=== PATIENT | female | born 1960 | race Caucasian/White ===

== ENCOUNTER 2019-08-24 13:39 | Outpatient (CLI) | payer OTHER, SELFPAY ==
--- NOTE | ~2019-08-24 | XR_ITS ---
XR shoulder LT min 2V DATE: 08/24/2019 14:06 INDICATION: Left shoulder pain. No injury. TECHNIQUE: 4 views COMPARISON: None FINDINGS: No fracture or dislocation, periosteal reaction or bone destruction or abnormal soft tissue calcification. Mild degenerative change of the left acromioclavicular joint. Aortic arch calcification is noted. IMPRESSION: Mild degenerative change at the left acromioclavicular joint Reviewed, dictated and finalized at location A. U RN
== END 2019-08-24 13:40 | disposition home or self-care (01) ==
LOC: ANHIMG 13:45
PROVIDERS: PCP Family Medicine; Visit Provider Family Medicine
DX: M25.512 Pain in left shoulder (principal)
CPT/HCPCS: 73030

== ENCOUNTER 2020-07-15 15:00 | Outpatient (CLI) | payer OTHER, SELFPAY ==
--- NOTE | ~2020-07-15 | MM_ITS ---
EXAMINATION: MM screening ángel BI w luis HISTORY: Screening TECHNIQUE: Craniocaudal and mediolateral oblique 3-D tomosynthesis images were obtained and synthetic 2-D images were generated. CAD analysis was submitted and interpreted. COMPARISON: Comparison to multiple prior studies sequentially, with oldest reviewed study dated 11/21. BREAST PARENCHYMAL COMPOSITION: The breasts are extremely dense, which lowers the sensitivity of mamm ography. FINDINGS: There is no evidence of suspicious mass, calcification, or architectural distortion to sugg est malignancy in either breast. There has been no suspicious interval change. IMPRESSION: 1. No mammographic evidence of malignancy. 2. Recommend routine screening mammography in one year. BI-RADS Category 1: Negative Reviewed, dictated and finalized at location A. INA PLANT SUPERVISOR
== END 2020-07-15 15:01 | disposition home or self-care (01) ==
LOC: ANHIMG 15:03
PROVIDERS: PCP Family Medicine; Visit Provider Family Medicine
DX: Z12.31 Encounter for screening mammogram for malignant neoplasm of breast (principal)
CPT/HCPCS: 77063; 77067

== ENCOUNTER 2020-08-24 10:28 | Outpatient (CLI) | payer OTHER, SELFPAY ==
--- NOTE | ~2020-08-24 | US_ITS ---
EXAMINATION: US carotid duplex BI DATE: 08/24/2020 11:22 INDICATION: Left carotid bruit TECHNIQUE: Grayscale, color Doppler, and pulsed Doppler images of the cervical carotid arteries were obtained. The degree of vessel stenosis is placed in one of the following categories: normal, <50%, 5 0-69%, >=70% but less than near-occlusion, near-occlusion, or total occlusion. Note that percent sten osis relative to normal distal artery lumen diameter is indirectly measured from velocity measurement s as described by Adalid, et al. Radiology 2003; 229:340-346. COMPARISON: None. FINDINGS: RIGHT: The right common carotid artery (CCA) peak systolic velocity (PSV) is 94 cm/s. The right internal car otid artery (ICA) PSV is 122 cm/s. The right ICA end-diastolic velocity (EDV) is 45 cm/s. The right I CA/CCA PSV ratio is 1.3. Grayscale and color Doppler images yield an estimate of <50% diameter reduct ion from plaque in the ICA. The external carotid artery (ECA) PSV is 145 cm/s. There is antegrade vangie w in the right vertebral artery. LEFT: The left CCA PSV is 96 cm/s. The left ICA PSV is 128 cm/s. The left ICA EDV is 39 cm/s. The left ICA/ CCA PSV ratio is 1.3. Grayscale and color Doppler images bleeding secondary Doppler criteria yield an estimate of <50% diameter reduction from plaque in the ICA. The ECA PSV is 142 cm/s. There is antegr raymond flow in the left vertebral artery with mid systolic deceleration which can be seen in the setting of presubclavian steal. IMPRESSION: 1. <50% stenosis in the right internal carotid artery. 2. <50% stenosis in the left internal carotid artery. 3. Left vertebral artery mid systolic deceleration which can be seen in the setting of presubclavian steal with stenosis in the more proximal left subclavian artery. Reviewed, dictated and finalized at location A. ET CUTTER IMPRESSION: 1. <50% stenosis in the right internal carotid artery. 2. <50% stenosis in the left internal carotid artery. 3. Left vertebral artery mid systolic deceleration which can be seen in the set ting of presubclavian steal with stenosis in the more proximal left subclavian artery.
== END 2020-08-24 10:29 | disposition home or self-care (01) ==
PROVIDERS: Family Provider Internal Medicine; PCP Family Medicine; Visit Provider Internal Medicine Cardiovascular Disease
DX: R09.89 Other specified symptoms and signs involving the circulatory and respiratory systems (principal); I65.23 Occlusion and stenosis of bilateral carotid arteries
CPT/HCPCS: 93880

== ENCOUNTER 2020-10-28 10:16 | Outpatient (CLI) | payer OTHER, SELFPAY ==
--- NOTE | ~2020-10-28 | NM_ITS ---
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 The patient was infused intravenously with Lexiscan (Regadenoson). Then, 28.7 mCi Tc99m tetrofosmin (Myoview) was administered intravenously, and stress images were obtained. Data was recon structed into short axis and horizontal and vertical long axis SPECT images. Gated SPECT images were also obtained. COMPARISON: None. FINDINGS: There is no definite reversible or fixed perfusion abnormality to suggest ischemia or infar ction. There is normal left ventricular chamber size, wall motion and ejection fraction. Left ventr icular ejection fraction measures >70%. IMPRESSION: 1. Normal myocardial perfusion at rest and during stress. 2. Left ventricular ejection fraction measuring >70%. Reviewed, dictated and finalized at location B.
--- NOTE | 2020-10-28 11:09 | EST_ITS ---
Patient Info Name: Gerri Loja Age: 60 years : 1960 Gender: Female Ht: 65 in Wt: 102 lbs BSA: 1.44 m2 Exam Date: 10/28/2020 11:42 AM Exam Location: [facility] Stress Patient Status: Outpatient Admit Date: 10/28/2020 Staff Ordering Physician: Ted Olivares DO Attending Provider: Ted Olivares DO Referring Physician: Ted Olivares; Exercise Technologist: Cristy Llamas CT Exercise Physician: Ted Olivares DO Exam Type: CA stress sloan w NM Study Info Indications R07.9 - Chest pain, unspecified A regadenoson stress test was performed. Summary 1. 1. Negative lexiscan stress test for ischemic ST change by ECG criteria. 2. 2. Stable hemodynamics throughout the test. 3. 3. Nuclear scan to follow and will be reported separately. Please correlate with it. 4. 4. Patient informed of the above results. Protocol: Lexiscan Stress ECG Details Stage: REST Duration (min): 4 min : 20 sec HR (bpm): 63 SBP (mmHg): 133 DBP (mmHg): 54 Stage: REST Duration (min): 5 min : 35 sec HR (bpm): 61 SBP (mmHg): 133 DBP (mmHg): 54 Stage: STAGE 1 Duration (min): 0 min : 59 sec HR (bpm): 72 SBP (mmHg): 132 DBP (mmHg): 67 Stage: RECOVERY Duration (min): 1 min : 0 sec HR (bpm): 76 SBP (mmHg): 132 DBP (mmHg): 67 Stage: RECOVERY Duration (min): 2 min : 0 sec HR (bpm): 77 SBP (mmHg): 132 DBP (mmHg): 67 Stage: RECOVERY Duration (min): 2 min : 32 sec HR (bpm): 79 SBP (mmHg): 174 DBP (mmHg): 71 Rest HR: 61 bpm Peak HR: 79 bpm Rest Sys BP: 133 mmHg Peak Sys BP: 174 mmHg Max Pred HR: 159 bpm % Max Pred HR: 50 % Target HR: 135 bpm Max RPP: 13,746 bpm*mmHg Termination Reason: Completed protocol Cardiac Symptoms: Shortness of breath Total Time: 1 min : 0 sec Rest Suresh BP: 54 mmHg Peak Suresh BP: 71 mmHg Total Dose: 0.4 mg Resting ECG Sinus rhythm. Stress ECG No ST changes. Arrhythmias None. Report Signatures
== END 2020-10-28 10:17 | disposition home or self-care (01) ==
PROVIDERS: PCP Family Medicine; Visit Provider Internal Medicine Cardiovascular Disease
DX: I25.10 Atherosclerotic heart disease of native coronary artery without angina pectoris (principal); R06.00 Dyspnea, unspecified
CPT/HCPCS: 78452; 93017; A9502; J2785

== ENCOUNTER 2021-02-03 13:20 | Outpatient (CLI) | payer OTHER, SELFPAY ==
--- NOTE | 2021-02-03 13:34 | ECHO_ITS ---
Patient Info Name: Gerri Loja Age: 60 years : 1960 Gender: Female Ht: 65 in Wt: 101 lbs BSA: 1.44 m2 HR: 65 bpm BP: 151 / 56 mmHg Technical Quality: Good Exam Date: 02/03/2021 1:51 PM Exam Location: [facility] Pulmonary Patient Status: Outpatient Admit Date: 02/03/2021 Staff Ordering Physician: Ted Olivares DO Home Health Specialist: Angel Osborn, [place], [place] Attending Provider: Ted Olivares DO Referring Physician: Marshall PEDRO; Exam Type: CA echo dop color flow w con Study Info Indications I50.9 - Heart failure, unspecified Complete two-dimensional, color flow and Doppler transthoracic echocardiogram is performed. Summary 1. Complete two-dimensional, color flow and Doppler transthoracic echocardiogram is performed. 2. Left ventricular chamber dimension is normal. 3. Left ventricular systolic function is normal, estimated at 60-65%. 4. The left ventricular diastolic function is grade I diastolic dysfunction. 5. E/e' 12 is mildly elevated. 6. Left atrial chamber dimension is mildly enlarged. 7. There is trace mitral valve regurgitation. 8. No pulmonary hypertension, estimated pulmonary arterial systolic pressure is 27 mmHg. Left Ventricle E/e' 12 is mildly elevated. Left ventricular chamber dimension is normal. Left ventricular systolic function is normal, estimated at 60-65%. The left ventricular diastolic function is grade I diastolic dysfunction. Right Ventricle Right ventricular systolic function is normal and with normal TAPSE 2.0 cm. Right ventricular chamber dimension is normal. Left Atria Left atrial chamber dimension is mildly enlarged. Right Atria Right atrial chamber dimension is normal. Aortic Valve The aortic valve is not well visualized. Cannot determine number of aortic valve leaflets. There is no aortic valve stenosis. There is no aortic valve regurgitation. Pulmonic Valve There is no pulmonic regurgitation. Mitral Valve There is no mitral valve stenosis. There is trace mitral valve regurgitation. Tricuspid Valve There is no tricuspid valve regurgitation. No pulmonary hypertension, estimated pulmonary arterial systolic pressure is 27 mmHg. Pericardium/Pleural There is no pericardial effusion. Inferior Vena Cava Normal inferior vena cava with >50% collapse upon inspiration consistent with normal right atrial pressure, 5 mmHg. Aorta The aortic root size at the sinus of Valsalva is normal. Left Ventricular Outflow Tract Name Value Normal LVOT 2D LVOT Diameter 1.99 cm LVOT Doppler LVOT Peak Gradient 4 mmHg LVOT Mean Gradient 2 mmHg LVOT VTI 18.72 cm LVOT VTI/AV VTI Ratio 0.60 LVOT Stroke Volume 58.04 ml LVOT CO 3.50 l/min LVOT CI 2.43 L/min/m2 Mitral Valve Name Value Normal
== END 2021-02-03 13:21 | disposition home or self-care (01) ==
PROVIDERS: PCP Family Medicine; Visit Provider Internal Medicine Cardiovascular Disease
DX: I51.9 Heart disease, unspecified (principal)
CPT/HCPCS: 93306

== ENCOUNTER 2021-02-10 09:52 | Emergency (ER) | payer OTHER, SELFPAY ==
[2021-02-10 10:04] VITALS: BP 114/56; PULSE 73; RESP 18; TEMP 36.5; O2SAT 99
--- NOTE | 2021-02-10 10:22 | ED.SKABFB ---
HPI - Skin/Abscess/Foreign Bdy General Chief complaint: Skin/Abscess/Foreign Body Stated complaint: Insect Bite Source: patient and RN notes reviewed Limitations: no limitations History of Present Illness HPI narrative: The patient, who is on several meds, presents with witnessed insect bite. Patient states she saw flying insect bite her lower extremity, a shorter couple days ago. No fever, abscess/induration/fluctuance, streaking. Symptoms are mild, associated with itching, from two, half dollar size areas along the moreno;its unrelieved with OTC preparations like baking soda. She reports prior physician has given her steroids; Patient advised she can use OTC preparations also Related Data Home Medications Medication Instructions Recorded Confirmed alendronate mg PO 02/10/21 clopidogrel 02/10/21 cyclobenzaprine mg 02/10/21 lisinopril 02/10/21 lisinopril 02/10/21 meloxicam 02/10/21 metoprolol succinate PO 02/10/21 simvastatin mg 02/10/21 Allergies Allergy/AdvReac Type Severity Reaction Status Date / Time No Known Allergies Allergy Verified 02/10/21 10:21 Review of Systems Review of Systems: Narrative: General/Constitutional: No weight loss,fever Eyes: N0: Redness,discharge Ears/Nose/Throat: No: Epistaxis,ear discharge Respiratory: Denies: Hemoptysis Gastrointestinal: No Vomiting, Bleeding-rectal Skin: No Lumps, eruption Neurologic: No Focal Weakness,Sz Hematologic: Denies: Petechiae/Purpura Psychiatric: No: Suicida ideationl All Other Systems: Reviewed and Negative PMFSH Comments At time of signature, agree with nursing past medical, surgical, social and family history. There is no relevant family history pertinent to the presenting complaint Exam Narrative: Exam Narrative: General Appearance: Well appearing, lean/thin, Conjunctiva clear Ears: External ear normal, Auditory canal normal Nose: Normal nose, Nares clear Mouth/Throat: Normal appearing, Normal lips Supple Respiratory: Airway patent, No respiratory distress Musculoskeletal: Normal strength Skin: Warm, Dry, Normal color; 2 half-dollar sized insect bites of the right moreno with plaque like, routine healing Neurological: A&O x3, Normal affect Course Vital Signs Vital signs: Vital Signs Temperature 97.7 F 02/10/21 10:04 Pulse Rate 73 02/10/21 10:04 Respiratory Rate 18 02/10/21 10:04 Blood Pressure 114/56 L 02/10/21 10:04 Pulse Oximetry 99 02/10/21 10:04 Temperature 97.7 F 02/10/21 10:04 Pulse Rate 73 02/10/21 10:04 Respiratory Rate 18 02/10/21 10:04 Blood Pressure 114/56 L 02/10/21 10:04 Pulse Oximetry 99 02/10/21 10:04 Discharge Plan Discharge Clinical Impression: Pruritic condition Insect bites Qualifiers: Encounter type: initial encounter Site of insect bite: lower leg Laterality: right Qualified Code(s): S80.861A - Insect bite (nonvenomous), right lower leg, initial encounter Patient Disposition: Home, Self-Care Condition: Stable Instructions: Insect Bite or Sting (ED) Additional Instructions: You may also try OTC preparations like antihistamines [like Claritin, etc.], 1% hydrocortisone/Cortaid Prescriptions: New mupirocin 2 % ointment 1 applic TOPICAL TID Qty: 30 RF: 0 cephalexin 500 mg capsule 1,000 mg PO Q12H 3 Days Qty: 12 RF: 0 No Action cyclobenzaprine 10 mg tablet RF: 0 meloxicam 15 mg tablet RF: 0 lisinopril 20 mg tablet RF: 0 alendronate 70 mg tablet PO RF: 0 clopidogrel 75 mg tablet RF: 0 simvastatin 20 mg tablet RF: 0 lisinopril 5 mg tablet RF: 0 metoprolol succinate 25 mg tablet extended release 24 hr PO RF: 0 Follow-up/Referrals: Toan,Kim Claros MD [Primary Care Provider] -
== END 2021-02-10 10:29 | disposition home or self-care (01) ==
PROVIDERS: Emergency Provider Emergency Medicine; PCP Family Medicine
DX: S80.861A Insect bite (nonvenomous), right lower leg, initial encounter (principal); W57.XXXA Bitten or stung by nonvenomous insect and other nonvenomous arthropods, initial encounter; E78.00 Pure hypercholesterolemia, unspecified; I10 Essential (primary) hypertension
CPT/HCPCS: 99213; G0463

== ENCOUNTER 2021-02-14 11:50 | Emergency (ER) | payer OTHER, SELFPAY ==
[2021-02-14 12:01] VITALS: BP 107/51; PULSE 72; RESP 16; TEMP 36.8; O2SAT 98
--- NOTE | 2021-02-14 12:04 | ED.SKABFB ---
HPI - Skin/Abscess/Foreign Bdy General Chief complaint: Skin/Abscess/Foreign Body Stated complaint: insect bite Time Seen by Provider: 02/14/21 12:35 Source: patient and RN notes reviewed Mode of arrival: ambulatory Limitations: no limitations History of Present Illness HPI narrative: 60-year-old female presents concern for a wasp sting to her right hand. Reports yesterday she encountered several wasps and was stung approximately 3 times on her right hand. She reports swelling, itching, some pain. She denies decrease strength, sensation, range of motion. Denies swollen lips, swollen tongue, trouble breathing. Reports she is used ice and hydrocortisone cream. MD complaint: insect bite/sting Related Data Home Medications Medication Instructions Recorded Confirmed alendronate 70 mg tablet 70 mg PO WEEKLY 08/19/20 02/14/21 aspirin 81 mg chewable tablet 81 mg PO DAILY 08/19/20 02/14/21 calcium carbonate 200 mg calcium 200 mg PO BID 08/19/20 02/14/21 (500 mg) chewable tablet cinnamon bark 500 mg capsule 500 mg PO DAILY 08/19/20 02/14/21 clopidogrel 75 mg tablet 75 mg PO DAILY 08/19/20 02/14/21 metoprolol succinate 25 mg 25 mg PO DAILY 08/19/20 02/14/21 tablet,extended release 24 hr multivitamin 1 tablet PO DAILY 08/19/20 02/14/21 simvastatin 20 mg tablet 20 mg PO DAILY 08/19/20 02/14/21 vitamin B complex 1 tablet PO DAILY 08/19/20 02/14/21 cephalexin 02/14/21 Allergies Allergy/AdvReac Type Severity Reaction Status Date / Time No Known Allergies Allergy Verified 02/14/21 12:12 Review of Systems Review of Systems: Narrative: CONSTITUTIONAL: Denies malaise, chills, sweats, or fever. ENT: Denies swollen lips, swollen tongue CARDIOVASCULAR: Denies chest pain, palpitations, or edema. RESPIRATORY: Denies cough or dyspnea. SKIN: Reports right hand swelling, itching, tenderness MUSCULOSKELETAL: Denies muscle skeletal pain or myalgia. NEUROLOGIC: Denies numbness, weakness. All systems reviewed & are unremarkable except as noted in HPI and below PMFSH Social History Social History (Reviewed 01/13/21 @ 09:41 by Cony Carreno [facility]) Smoking status: Former smoker Comments At time of signature, agree with nursing past medical, surgical, social and family history. There is no relevant family history pertinent to the presenting complaint Exam Narrative: Exam Narrative: GENERAL: Well-appearing, well-nourished, and in no acute distress. HEAD: Normocephalic, atraumatic. EYES: PERRLA, conjunctivae clear, and EOMI. ENT: Mucous membranes moist. Oropharynx without edema, erythema or lesions. NECK: Supple. No lymphadenopathy CHEST: Clear to auscultation. No respiratory distress. HEART: Regular rate and rhythm. SKIN: Warm, dry. Erythema, edema without induration or rash noted to the right hand and digits. No wasp sting site visible, no stinger visible. Hand has normal strength, sensation, range of motion. NEURO: Alert and oriented x3. PSYCH: Normal mood and affect Course Course Emergency Course: Methylprednisone IM 125 mg administered to patient. Patient is aware of diagnosis, understands and agrees to treatment plan. Anticipatory guidance given. Patient agrees to follow-up as directed and is aware of reasons to seek care at the emergency department. Portions of this record may have been created with voice recognition software Vital Signs Vital signs: Vital Signs Temperature 98.2 F 02/14/21 12:01 Pulse Rate 72 02/14/21 12:01 Respiratory Rate 16 02/14/21 12:01 Blood Pressure 107/51 L 02/14/21 12:01 Pulse Oximetry 98 02/14/21 12:01 Temperature 98.2 F 02/14/21 12:01 Pulse Rate 72 02/14/21 12:01 Respiratory Rate 16 02/14/21 12:01 Blood Pressure 107/51 L 02/14/21 12:01 Pulse Oximetry 98 02/14/21 12:01 Reviewed. MDM - Skin/Abscess/Foreign Bdy MDM Narrative Medical decision making narrative: Does not appear at this time to be erythema multiforme, bullous, SJS, TEN; no evidence at t
[2021-02-14] MEDS: methylPREDNISolone SOD SUCC 125 MG VIAL IM (12:49)
== END 2021-02-14 13:02 | disposition home or self-care (01) ==
PROVIDERS: Emergency Provider Nurse Practitioner; PCP Family Medicine
DX: T63.461A Toxic effect of venom of wasps, accidental (unintentional), initial encounter (principal); E78.00 Pure hypercholesterolemia, unspecified; I10 Essential (primary) hypertension
CPT/HCPCS: 96372; 99213; G0463; J2930

== ENCOUNTER 2022-07-18 10:28 | Emergency (ER) | payer OTHER, SELFPAY ==
--- NOTE | ~2022-07-18 | XR_ITS ---
EXAMINATION: XR chest 2V DATE: 07/18/2022 11:19 INDICATION: Prolonged QT interval. Shortness of breath. TECHNIQUE: PA and lateral views of the chest were obtained. COMPARISON: Chest radiograph dated 06/03/16 FINDINGS: Hyperexpansion of lungs with mild biapical pleural-parenchymal scarring. Calcified nodule at the righ t lung base consistent with old granulomatous disease. No other airspace opacities, pulmonary edema, pleural effusion or pneumothorax. The cardiomediastinal silhouette is normal. Mild pectus excavatum. Mild thoracic kyphosis with moderate spondylosis. IMPRESSION: 1. Chronic hyperexpansion of the lungs without acute cardiopulmonary disease. Reviewed, dictated and finalized at location A. OOD LAYUP LINE BACK FEEDER
--- NOTE | 2022-07-18 10:30 | ED.SOB ---
HPI - SOB/Dyspnea General Chief Complaint: Shortness of Breath/Dyspnea Stated Complaint: Shortness of Breath,BP Time Seen by Provider: 07/18/22 11:00 Source: patient and RN notes reviewed Mode of arrival: ambulatory Limitations: no limitations History of Present Illness HPI Narrative: 61-year-old female presents concern for shortness of breath after starting a new medication. 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 Reports she feels ?winded? when during normal daily activities such as putting on her coat. Patient is a smoker. She denies any chest pain, diaphoresis, nausea. She denies upper respiratory symptoms, cough MD elicited complaint: shortness of breath Related Data Home Medications Medication Instructions Recorded Confirmed alendronate 70 mg tablet 70 mg PO WEEKLY 08/19/20 07/13/22 aspirin 81 mg chewable tablet 81 mg PO DAILY 08/19/20 07/13/22 (Aspirin Childrens) calcium carbonate 200 mg calcium 200 mg PO BID 08/19/20 07/13/22 (500 mg) chewable tablet (Antacid (calcium carbonate)) cinnamon bark 500 mg capsule 500 mg PO DAILY 08/19/20 07/13/22 multivitamin (Daily Multi-Vitamin 1 tablet PO DAILY 08/19/20 07/13/22 tablet) simvastatin 20 mg tablet 20 mg PO DAILY 08/19/20 07/13/22 vitamin B complex (B 1 tablet PO DAILY 08/19/20 07/13/22 Complex-Vitamin B12 tablet) Allergies Allergy/AdvReac Type Severity Reaction Status Date / Time No Known Allergies Allergy Verified 07/13/22 10:11 Review of Systems Review of Systems: CONSTITUTIONAL: Denies malaise, chills, sweats, or fever. EYES: Denies visual changes, redness, or discharge. ENT: Denies rhinorrhea, congestion, sinus pain, otalgia or sore throat. CARDIOVASCULAR: Denies chest pain, palpitations, or edema. RESPIRATORY: Denies cough. Reports dyspnea. GASTROINTESTINAL: Denies abdominal pain, nausea, vomiting, diarrhea, SKIN: Denies rash or itching. MUSCULOSKELETAL: Denies back pain, joint pain, or myalgia. NEUROLOGIC: Denies numbness, weakness, or headache. All systems reviewed & are unremarkable except as noted in HPI and below PMFSH Social History Social History Smoking status: Former smoker Lack of Transportation: No Lack of Food: Never True Current Housing: I Have Housing Concerned About Future Housing: No Difficulty Paying Gas/Electric Bills: No Difficulty Paying for Meds: No Currently Unemployed: No Education: Trade/Vocational Certificate Difficulty w/ Childcare or Family Care: No Comments At time of signature, agree with nursing past medical, surgical, social and family history. There is no relevant family history pertinent to the presenting complaint Exam Narrative: GENERAL: Nontoxic and in no acute distress. HEAD: Normocephalic, atraumatic. EYES: PERRLA, sclera clear, and EOMI. ENT: Nares clear, turbinates pink, no rhinorrhea or epistaxis. Mucous membranes moist. Oropharynx erythematous without lesions. Tonsils enlarged and without exudate, no drooling, no hoarseness, no trismus, uvula midline. NECK: Supple. No lymphadenopathy. No jugular venous distension, thyromegaly, or carotid bruits. Carotids were easily palpable bilaterally. CHEST: No respiratory distress. Scattered rhonchi, aeration fair. No wheezing. No bony deformities, no asymmetry. Speaks in full sentences. HEART: Regular rate and rhythm. No murmur heard. Normal peripheral pulses. ABDOMEN: Soft, nontender, nondistended, normal active bowel sounds, no palpable masses. EXTREMITIES: Normal range of motion. No edema. Normal strength and sensation. SKIN: Warm, dry, no visible rash. NEURO: Alert and oriented x3. No focal deficits. Cranial nerves II through XII grossly intact PSYCH: Normal mood and affect Course Course Emergency Course: Discussed limited diagnostic capability Express Care for patient's symptoms, advised
[2022-07-18 10:41] VITALS: BP 191/67; PULSE 63; RESP 16; TEMP 36.2; O2SAT 98
--- NOTE | 2022-07-18 11:02 | ECG_ITS ---
Measurements Intervals [place] Rate: 58 P: 77 [place]: 141 QRS: 93 QRSD: 94 T: 73 QT: 475 QTc: 467 Interpretive Statements SINUS BRADYCARDIA BASELINE ARTIFACT POSSIBLE LEFT ATRIAL ENLARGEMENT NONSPECIFIC ST ABNORMALITY BORDERLINE ECG NO PREVIOUS ECG AVAILABLE FOR COMPARISON Electronically Signed On 07-20-2022 16:40:48 TANGLED YARN SPOOL STRAIGHTENER by Calvin Melendrez M.D.
== END 2022-07-18 11:42 | disposition left against medical advice (07) ==
PROVIDERS: Emergency Provider Nurse Practitioner
DX: R06.02 Shortness of breath (principal); Z87.891 Personal history of nicotine dependence; Z79.82 Long term (current) use of aspirin
CPT/HCPCS: 71046; 93005; 99213; G0463

== ENCOUNTER 2022-07-29 12:16 | Outpatient (CLI) | payer OTHER, SELFPAY ==
--- NOTE | ~2022-07-29 | US_ITS ---
EXAMINATION: US carotid duplex BI DATE: 07/29/2022 13:12 INDICATION: Other specified symptoms and signs. TECHNIQUE: Grayscale, color Doppler, and pulsed Doppler images of the cervical carotid arteries were obtained. The degree of vessel stenosis is placed in one of the following categories: normal, <50%, 5 0-69%, >=70% but less than near-occlusion, near-occlusion, or total occlusion. Note that percent sten osis relative to normal distal artery lumen diameter is indirectly measured from velocity measurement s as described by Adalid, et al. Radiology 2003; [id number]. COMPARISON: Ultrasound 08/24/2020 FINDINGS: RIGHT: The right common carotid artery (CCA) peak systolic velocity (PSV) is 63 cm/s. The right internal car otid artery (ICA) PSV is 104 cm/s. The right ICA end-diastolic velocity (EDV) is 33 cm/s. The right I CA/CCA PSV ratio is 1.6. Grayscale and color Doppler images yield an estimate of <50% diameter reduct ion from plaque in the ICA. There is antegrade flow in the right vertebral artery. LEFT: The left CCA PSV is 78 cm/s. The left ICA PSV is 106 cm/s. The left ICA EDV is 32 cm/s. The left ICA/ CCA PSV ratio is 1.4. Grayscale and color Doppler images yield an estimate of <50% diameter reduction from plaque in the ICA. There is antegrade flow in the left vertebral artery. IMPRESSION: 1. <50% stenosis in the right internal carotid artery. 2. <50% stenosis in the left internal carotid artery. Reviewed, dictated and finalized at location A. AU SUPPORT WORKER
== END 2022-07-29 12:17 | disposition home or self-care (01) ==
PROVIDERS: PCP Family Medicine; Visit Provider Internal Medicine Cardiovascular Disease
DX: I65.23 Occlusion and stenosis of bilateral carotid arteries (principal)
CPT/HCPCS: 93880

== ENCOUNTER 2022-08-20 12:34 | Outpatient (CLI) | payer OTHER, SELFPAY ==
--- NOTE | 2022-08-20 | ECHO_ITS ---
Patient Info Name: Gerri Loja Age: 62 years : 1960 Gender: Female Ht: 65 in Wt: 94 lbs BSA: 1.38 m2 HR: 53 bpm BP: 123 / 55 mmHg Technical Quality: Good Exam Date: 08/20/2022 12:58 PM Exam Location: [facility] Pulmonary Patient Status: Outpatient Admit Date: 08/20/2022 Staff Ordering Physician: ShrutiMana Laborer Wrecking [employer] Salvaging: Nadiya Dolan RDCS Attending Provider: ShrutiMana Exam Type: CA echo doppler color flow Study Info Indications - dyspnea Complete two-dimensional, color flow and Doppler transthoracic echocardiogram is performed. Summary 1. Complete two-dimensional, color flow and Doppler transthoracic echocardiogram is performed. 2. Left ventricular chamber dimension is normal. 3. Left ventricular systolic function is normal, estimated at 60-65%. 4. The left ventricular diastolic function is abnormal. 5. E/e' 14 is mildly elevated. 6. Left atrial chamber dimension is moderately enlarged. 7. Right atrial chamber dimension is mildly enlarged. 8. There is moderate aortic valve sclerosis. 9. The mitral valve has mildly calcified annulus. 10. There is trace tricuspid valve regurgitation. 11. No pulmonary hypertension, estimated pulmonary arterial systolic pressure is 27 mmHg. Left Ventricle E/e' 14 is mildly elevated. Left ventricular chamber dimension is normal. Left ventricular systolic function is normal, estimated at 60-65%. The left ventricular diastolic function is abnormal. Right Ventricle Right ventricular chamber dimension is normal. Right ventricular systolic function is normal. Left Atria Left atrial chamber dimension is moderately enlarged. Right Atria Right atrial chamber dimension is mildly enlarged. Aortic Valve The aortic valve is trileaflet. There is moderate aortic valve sclerosis. There is no aortic valve stenosis. There is no aortic valve regurgitation. Pulmonic Valve There is no pulmonic regurgitation. Mitral Valve The mitral valve has mildly calcified annulus. There is no mitral valve stenosis. There is no mitral valve regurgitation. Tricuspid Valve There is trace tricuspid valve regurgitation. No pulmonary hypertension, estimated pulmonary arterial systolic pressure is 27 mmHg. Pericardium/Pleural There is no pericardial effusion. Inferior Vena Cava Normal inferior vena cava with >50% collapse upon inspiration consistent with normal right atrial pressure, 5 mmHg. Aorta The aortic root size at the sinus of Valsalva is normal. Left Ventricular Outflow Tract Name Value Normal LVOT 2D LVOT Diameter 2.0 cm LVOT Doppler LVOT Peak Gradient 6 mmHg LVOT Mean Gradient 3 mmHg LVOT VTI 28 cm LVOT VTI/AV VTI Ratio 0.8 LVOT Stroke Volume 90 ml LVOT CO 16.5 l/min LVOT CI 11.9 l/min/m2 Pulmonic Valve Name
--- NOTE | 2022-08-21 12:53 | WPDPFTINT ---
PFT Procedure Performed PFT Procedure Performed Plethysmography (Lung Vol) Diffusing Cap (DLCO) Flow Vol Loop Spirometry w/o Bronchodil PFT Interpretation Lung volumes were measured with the body plethysmography method. The mildly elevated FRC could be related to air trapping. The remaining lung volumes are unremarkable. Spirometry showed diminished expiratory flow rates and a diminished FEV1 to FVC ratio 52%, indicative of obstructive airway disease. No post bronchodilator study carried out. Lung diffusion capacity is severely reduced at 40% predicted. The flow-volume loop is consistent with obstructive airway disease. Impression: Mild obstructive airway disease with evidence of air trapping. Severely reduced lung diffusion capacity.
== END 2022-08-20 12:35 | disposition home or self-care (01) ==
PROVIDERS: PCP Physician Assistant; Visit Provider Physician Assistant
DX: R06.09 Other forms of dyspnea (principal); R94.2 Abnormal results of pulmonary function studies; I34.0 Nonrheumatic mitral (valve) insufficiency; I35.1 Nonrheumatic aortic (valve) insufficiency
CPT/HCPCS: 93306; 94375; 94726; 94729

== ENCOUNTER 2022-11-09 11:34 | Emergency (ER) | payer OTHER, SELFPAY ==
[2022-11-09 11:45] VITALS: BP 104/47; PULSE 20; RESP 20; TEMP 36.2; O2SAT 98
--- NOTE | 2022-11-09 12:02 | ECG_ITS ---
Measurements Intervals Keller Rate: 86 P: 80 ND: 143 QRS: 70 QRSD: 93 T: 58 QT: 398 QTc: 476 Interpretive Statements SINUS RHYTHM WITH FREQUENT VENTRICULAR PREMATURE COMPLEXES POSSIBLE LEFT ATRIAL ENLARGEMENT [-0.1mV P WAVE IN V1/V2] NONSPECIFIC ST SEGMENT ABNORMALITY COMPARED TO ECG 07/18/2022 11:03:38 VENTRICULAR ECTOPIC ACTIVITY IS NOW SEEN Electronically Signed On 11-10-2022 6:55:31 CDT by Alberto Soriano M.D.
--- NOTE | 2022-11-09 12:04 | ED.EAR ---
HPI - Ear Problem General Chief complaint: Upper Respiratory Infection Stated complaint: dizziness,sob Time Seen by Provider: 11/09/22 11:38 Source: patient Mode of arrival: ambulatory Limitations: no limitations History of Present Illness HPI Narrative: 62-year-old female presents to [facility] complaints of bilateral ear pain, intermittent shortness of breath, chills, low-grade fevers, weakness, fatigue, pale skin color for the past 2 weeks. Patient reports that she also has lost nearly 10 lb over the past 2 weeks. Patient denies cough or wheezing. Patient is a smoker. Patient has been taking movk-yoy-sedarrj ibuprofen with minimal relief. Patient reports that she does see a wholesale parts salesperson for a heart murmur MD Complaint: ear pain Location: bilateral Relieving factors: nothing Exacerbating factors: nothing Discharge from ear: Reports no Treatment prior to arrival: none Related Data Home Medications Medication Instructions Recorded Confirmed alendronate 70 mg tablet 70 mg PO WEEKLY 08/19/20 11/09/22 aspirin 81 mg chewable tablet 81 mg PO DAILY 08/19/20 11/09/22 (Aspirin Childrens) calcium carbonate 200 mg calcium 200 mg PO BID 08/19/20 11/09/22 (500 mg) chewable tablet (Antacid (calcium carbonate)) cinnamon bark 500 mg capsule 500 mg PO DAILY 08/19/20 11/09/22 multivitamin (Daily Multi-Vitamin 1 tablet PO DAILY 08/19/20 11/09/22 tablet) vitamin B complex (B 1 tablet PO DAILY 08/19/20 11/09/22 Complex-Vitamin B12 tablet) cyclobenzaprine 10 mg tablet mg 02/10/21 09/07/22 meloxicam 15 mg tablet 02/10/21 09/07/22 metoprolol succinate 25 mg PO 02/10/21 09/07/22 tablet,extended release 24 hr budesonide-formoterol HFA 160 2 puff inhalation Q12H 09/07/22 11/09/22 mcg-4.5 mcg/actuation aerosol inhaler (Symbicort) carvedilol 6.25 mg tablet 6.25 mg PO ONCE 09/07/22 11/09/22 lisinopril 10 mg tablet 10 mg PO DAILY 09/07/22 11/09/22 Allergies Allergy/AdvReac Type Severity Reaction Status Date / Time No Known Allergies Allergy Verified 09/07/22 10:56 Review of Systems Constitutional: Constitutional: Reports chills, Reports fatigue, Reports fever(s) and Reports weakness Comments: Weight loss ENT: Reports dizziness, Denies nasal congestion and Denies sore throat Cardiovascular: Cardiovascular: Denies chest pain, Denies rapid heart rate, Denies radiating jaw, neck or arm pain and Denies slow heart rate Respiratory: Respiratory: Reports cough, Reports dyspnea and Denies wheezing Gastrointestinal: Gastrointestinal: Denies diarrhea, Denies nausea and Denies vomiting Integumentary/Breasts: Comments: Pale skin color PMFSH Social History Social History Smoking status: Former smoker Lack of Transportation: No Lack of Food: Never True Current Housing: I Have Housing Concerned About Future Housing: No Difficulty Paying Gas/Electric Bills: No Difficulty Paying for Meds: No Currently Unemployed: No Education: Trade/Vocational Certificate Difficulty w/ Childcare or Family Care: No Comments At time of signature, I agree with nursing past medical, surgical, social and family history. There is no relevant family history pertinent to the presenting complaint. Exam Const: General: alert and ill appearing Nutritional Appearance: thin Orientation/consciousness: patient oriented x3 HENMT: Head: normal to inspection Ears: external ears normal and Abnormal EAC present (Mild cerumen noted to right ear canal) Face and sinus: normal facial exam Mouth: Yes moist mucous membranes Throat: posterior oropharynx normal and uvula midline Eyes: Conjunctivae: conjunctivae normal Neck: Neck: normal visual inspection Resp: Effort & Inspection: normal respiratory effort Auscultation: clear to auscultation bilaterally, no crackles, no rales, no rhonchi and no wheezes Cardio: Rate: regular rate Rhythm: abnormal rhythm regularly irregular He
== END 2022-11-09 12:29 | disposition short-term general hospital (02) ==
PROVIDERS: Emergency Provider Nurse Practitioner Family; PCP Physician Assistant
DX: R53.1 Weakness (principal); R23.1 Pallor; R63.4 Abnormal weight loss; Z68.1 Body mass index [BMI] 19.9 or less, adult; Z87.891 Personal history of nicotine dependence; R01.1 Cardiac murmur, unspecified; Z79.82 Long term (current) use of aspirin; E78.00 Pure hypercholesterolemia, unspecified; I10 Essential (primary) hypertension
CPT/HCPCS: 93005; 99213; G0463

== ENCOUNTER 2022-12-30 14:47 | Outpatient (CLI) | payer OTHER, SELFPAY ==
--- NOTE | ~2022-12-30 | MM_ITS ---
EXAMINATION: MM screening ángel BI w lius HISTORY: Screening TECHNIQUE: Craniocaudal and mediolateral oblique 3-D tomosynthesis images were obtained and synthetic 2-D images were generated. CAD analysis was submitted and interpreted. COMPARISON: Comparison to multiple prior studies sequentially, with oldest reviewed study dated 11/2014. BREAST PARENCHYMAL COMPOSITION: The breasts are extremely dense, which lowers the sensitivity of mamm ography. FINDINGS: There is no evidence of suspicious mass, calcification, or architectural distortion to sugg est malignancy in either breast. There has been no suspicious interval change. IMPRESSION: 1. No mammographic evidence of malignancy. 2. Recommend routine screening mammography in one year. BI-RADS Category 1: Negative Reviewed, dictated and finalized at location A.
== END 2022-12-30 14:48 | disposition home or self-care (01) ==
LOC: ANHIMG 14:49
PROVIDERS: PCP Physician Assistant; Visit Provider Physician Assistant
DX: Z12.31 Encounter for screening mammogram for malignant neoplasm of breast (principal)
CPT/HCPCS: 77063; 77067

== ENCOUNTER 2023-07-14 14:55 | Outpatient (CLI) | payer OTHER, SELFPAY ==
--- NOTE | ~2023-07-14 | DEXA_ITS ---
Bone Density Report Name: PRIETO HERNANDEZ Age: 62 Sex: Female Ethnicity: White Date of : 1960 Indication: osteopenia; monitoring treatment; height loss; postmenopausal Referring Provider: PAMELAROBERTO Study: Bone densitometry was performed. Exam Date: July 14, 2023 Accession number: [id number] Bone Density: Region BMD T-score Z-score Classification AP Spine(L1-L4) 0.877 -1.5 0.1 Osteopenia Femoral Neck (Left) 0.631 -2.0 -0.5 Osteopenia Total Hip (Left) 0.685 -2.1 -0.9 Osteopenia Femoral Neck (Right) 0.626 -2.0 -0.5 Osteopenia Total Hip (Right) 0.691 -2.1 -0.9 Osteopenia Total Hip Mean 0.688 -2.1 -0.9 Osteopenia World Health Organization criteria for BMD impression classify patients as: Normal (T-score at or above -1.0), Osteopenia (T-score between -1.0 and -2.5), or Osteoporosis (T-score at or below -2.5). 10-year Fracture Risk: FRAX not reported because: Treated for osteoporosis Previous Exams: Region Exam Age BMD T-score BMD Change BMD Change Date g/cm2 vs Baseline vs Previous AP Spine (L1-L4) 07/14/2023 62 0.877 -1.5 0.116 (15.3%)# 0.082 (10.3%)# 06/21/2017 56 0.795 -2.3 0.034 (4.5%)* 0.034 (4.5%)* 04/16/2015 54 0.761 -2.6 Total Hip(Left) 07/14/2023 62 0.685 -2.1 -0.047 (-6.4%) -0.081 (-10.5% 06/21/2017 56 0.766 -1.4 0.034 (4.6%)* 0.034 (4.6%)* 04/16/2015 54 0.732 -1.7 Total Hip(Right) 07/14/2023 62 0.691 -2.1 0.011 (1.6%)# -0.063 (-8.3%) 06/21/2017 56 0.754 -1.5 0.074 (10.8%)* 0.074 (10.8%)* 04/16/2015 54 0.681 -2.1 *Denotes significance at 95% confidence level, LSC for AP Spine = 0.022 g/cm2, LSC for Total Hip = 0.027 g/cm2 # Denotes dissimilar scan types or analysis methods Clinical Information Provided by Patient: Is being treated for osteoporosis Has used the following medications: Vitamin D, Calcium Patient maximum height was 65 Menopause Age: 39 No regular weight bearing exercise Onset of menses at age 11 Number of children 1 Impression: The patient has low bone mass, based on the Left Total Hip T-score. No significant bone loss was observed. Discussion: PATIENT UNDER TREATMENT WITH NO SIGNIFICANT BMD LOSS SINCE LAST EXAM. In an untreated patient, BMD typically declines with age. A lack of decline or gain is usually a sign that treatment is efficacious and fracture risk is reduced. It is important to ask patients whether they are taking their medications and
== END 2023-07-14 14:56 | disposition home or self-care (01) ==
LOC: ANHIMG 14:56
PROVIDERS: PCP Physician Assistant; Visit Provider Physician Assistant
DX: Z13.820 Encounter for screening for osteoporosis (principal); M85.88 Other specified disorders of bone density and structure, other site; M85.852 Other specified disorders of bone density and structure, left thigh; M85.851 Other specified disorders of bone density and structure, right thigh
CPT/HCPCS: 77080

== ENCOUNTER 2023-12-01 08:30 | Emergency (ER) | payer OTHER, SELFPAY | END 2023-12-01 09:26 | disposition home or self-care (01) | LOC: EXPTROY 15:56 | PROVIDERS: Emergency Provider Nurse Practitioner Family; PCP Physician Assistant | DX: S80.11XA Contusion of right lower leg, initial encounter (principal); X58.XXXA Exposure to other specified factors, initial encounter; Y93.H2 Activity, gardening and landscaping; R58 Hemorrhage, not elsewhere classified; M19.90 Unspecified osteoarthritis, unspecified site; E78.00 Pure hypercholesterolemia, unspecified; Z86.16 Personal history of COVID-19 | CPT/HCPCS: 99212; G0463 ==

== ENCOUNTER 2024-01-08 08:29 | Outpatient (CLI) | payer OTHER, SELFPAY ==
--- NOTE | ~2024-01-08 | MM_ITS ---
EXAMINATION: MM screening ángel BI w luis HISTORY: Screening TECHNIQUE: Craniocaudal and mediolateral oblique 3-D tomosynthesis images were obtained and synthetic 2-D images were generated. CAD analysis was submitted and interpreted. COMPARISON: Comparison to multiple prior studies sequentially, with oldest reviewed study dated 11/2014. BREAST PARENCHYMAL COMPOSITION: Dense: The breasts are extremely dense, which lowers the sensitivity of mammography. FINDINGS: There is no evidence of suspicious mass, calcification, or architectural distortion to sugg est malignancy in either breast. There has been no suspicious interval change. IMPRESSION: 1. No mammographic evidence of malignancy. 2. Recommend routine screening mammography in one year. BI-RADS Category 1: Negative Reviewed, dictated and finalized at location B.
== END 2024-01-08 08:30 | disposition home or self-care (01) ==
PROVIDERS: PCP Physician Assistant; Visit Provider Physician Assistant
DX: Z12.31 Encounter for screening mammogram for malignant neoplasm of breast (principal)
CPT/HCPCS: 77063; 77067

== ENCOUNTER 2024-04-06 07:36 | Outpatient (CLI) | payer OTHER, SELFPAY ==
--- NOTE | 2024-04-06 07:46 | ECHO_ITS ---
Patient Info Name: Gerri Loja Age: 63 years : 1960 Gender: Female Ht: 65 in Wt: 93 lbs BSA: 1.37 m2 HR: 61 bpm BP: 169 / 74 mmHg Technical Quality: Fair Exam Date: 04/06/2024 7:53 AM Exam Location: Echo Lab Patient Status: Outpatient Admit Date: 04/06/2024 Staff Ordering Physician: Ted Olivares DO Floor Broker: Clara Johns RDCS Attending Provider: Ted Olivares DO Referring Physician: Marshall PEDRO; Exam Type: CA echo doppler color flow Study Info Indications R01.1 - Cardiac murmur, unspecified Complete two-dimensional, color flow and Doppler transthoracic echocardiogram is performed. Summary 1. Complete two-dimensional, color flow and Doppler transthoracic echocardiogram is performed. 2. Left ventricular chamber dimension is normal. 3. Left ventricular systolic function is normal, estimated at 65-70%. 4. The left ventricular diastolic function is grade I diastolic dysfunction. 5. E/e' 15 is elevated. 6. There is moderate aortic valve sclerosis. 7. There is trace aortic valve regurgitation. 8. There is mild mitral valve regurgitation. 9. There is mild tricuspid valve regurgitation. 10. No pulmonary hypertension, estimated pulmonary arterial systolic pressure is 35 mmHg. 11. There is trivial pericardial effusion. Left Ventricle E/e' 15 is elevated. Left ventricular chamber dimension is normal. Left ventricular systolic function is normal, estimated at 65-70%. The left ventricular diastolic function is grade I diastolic dysfunction. Right Ventricle Right ventricular chamber dimension is normal. Right ventricular systolic function is normal. Left Atria Left atrial chamber dimension is normal. Right Atria Right atrial chamber dimension is normal. Aortic Valve The aortic valve is trileaflet. There is moderate aortic valve sclerosis. There is no aortic valve stenosis. There is trace aortic valve regurgitation. Pulmonic Valve There is no pulmonic regurgitation. Mitral Valve There is no mitral valve stenosis. There is mild mitral valve regurgitation. Tricuspid Valve There is mild tricuspid valve regurgitation. No pulmonary hypertension, estimated pulmonary arterial systolic pressure is 35 mmHg. Pericardium/Pleural There is trivial pericardial effusion. Inferior Vena Cava Normal inferior vena cava with >50% collapse upon inspiration consistent with normal right atrial pressure, 5 mmHg. Aorta The aortic root size at the sinus of Valsalva is normal. Left Ventricular Outflow Tract Name Value Normal LVOT 2D LVOT Diameter 2.0 cm LVOT Doppler LVOT Peak Gradient 7 mmHg LVOT Mean Gradient 4 mmHg LVOT VTI 36 cm LVOT VTI/AV VTI Ratio 1.2 LVOT Stroke Volume 109 ml LVOT CO 6.1 l/min LVOT CI 4.4 l/min/m2 Pulmonic Valve Name Value Normal RVOT Doppler
== END 2024-04-06 07:37 | disposition home or self-care (01) ==
PROVIDERS: PCP Physician Assistant; Visit Provider Internal Medicine Cardiovascular Disease
DX: R01.1 Cardiac murmur, unspecified (principal); I34.0 Nonrheumatic mitral (valve) insufficiency; I36.1 Nonrheumatic tricuspid (valve) insufficiency
CPT/HCPCS: 93306

== ENCOUNTER 2024-07-05 07:52 | Outpatient (CLI) | payer OTHER, SELFPAY ==
--- NOTE | ~2024-07-05 | US_ITS ---
Limited Abdominal Sonogram: Real-time sonographic imaging of the right upper quadrant was performed. Clinical History: Abnormal liver enzymes Findings: The liver appears normal with no evidence of mass lesion or bile duct dilatation. Main por kisha vein demonstrates normal direction of flow. The gallbladder is well distended, and appears normal with no evidence of gallstone or wall thickening. The common bile duct measures 3 mm. The visualize d pancreas, aorta, and IVC are unremarkable, aside from atherosclerotic change of the aorta. Impression: No significant abnormality seen. Reviewed, dictated and finalized at location M. L LAY UP WORKER Impression: No significant abnormality seen.
== END 2024-07-05 07:53 | disposition home or self-care (01) ==
PROVIDERS: PCP Physician Assistant; Visit Provider Physician Assistant
DX: R74.01 Elevation of levels of liver transaminase levels (principal)
CPT/HCPCS: 76705

== ENCOUNTER 2025-01-08 08:58 | Outpatient (CLI) | payer OTHER, SELFPAY ==
--- NOTE | ~2025-01-08 | MM_ITS ---
EXAMINATION: MM screening ángel BI w luis HISTORY: Screening TECHNIQUE: Craniocaudal and mediolateral oblique 3-D tomosynthesis images were obtained and synthetic 2-D images were generated. CAD analysis was submitted and interpreted. COMPARISON: Comparison to multiple prior studies sequentially, with oldest reviewed study dated 10/20. BREAST PARENCHYMAL COMPOSITION: Dense: The breasts are extremely dense, which lowers the sensitivity of mammography. FINDINGS: There is no evidence of suspicious mass, calcification, or architectural distortion to sugg est malignancy in either breast. There has been no suspicious interval change. IMPRESSION: 1. No mammographic evidence of malignancy. 2. Recommend routine screening mammography in one year. BI-RADS Category 1: Negative Reviewed, dictated and finalized at location A.
--- OUTSIDE RECORDS SUMMARY | 2025-01-08 09:23 | XMS_ITS | Continuity of Care Document ---
Author Organization [facility] Address [address] [place] [address] Phone Care Team Providers Care Carton Liner Name Role Phone Johanna Mares MD Unavailable Unavailabl e Allergies, Adverse Reactions, Alerts Substance Reaction Status Criticality No Known Drug Allergies Other Active No I nformation Medications Medication Instructions Dosage Effective Dates (start - stop) Status Comments FIBERCON 625MG TABS 1 DAILY - Active TUMS ULTRA 1000MG TABS 1 BID - Act ashlee VITAMIN C 1000MG TABS 1 QD-daily - Act ashlee IBUPROFEN 800MG TABS 1 TID - Activ e Advance Directives Directive Yes / No Effective Date File Name No Information Encounters Encounter Description Practice Location Reason(s) For Visit Diagnoses Date Provider Providers Copied on Encounter [facility], [address], [place], [place], [address] , tel: [phone] Nicho No Information 7 Vishnu Spencer. [address] [place], [place], [address]. tel:[phone] [facility], [address], [place], [place], [address] , [place] tel: [phone] Nicho No Information 1 Vishnu Spencer. [address] [place], [place], [address]. tel:[phone] [facility], [address], [place], [place], [address] , tel: [phone] Nicho SCREEN LIPOID DISORDERSDERMATOPHYT OSIS OF NAIL 6200 9 Mares Johanna. [address] [place], [place], [address]. tel:[phone] [facility], [address], [place], [place], [address] , [place] tel: [phone] [facility] SCREEN MAL NEOP-RECTUMROUTINE MEDICAL EXAMROUTINE HAIR COLORIST EXAMINATIONSCREEN MAL NEOP-CERVIX 3-200 9 Mares Johanna. [address] [place], [place], [address]. tel:[phone] [facility], [address], [place], [place], [address] , [place] tel: [phone] [facility] CONSTIPATION NOS Dec-0 2200 9 Mares Johanna. [address] [place], [place], [address]. tel:[phone] [facility], [address], [place], [place], [address] , [place] tel: [phone] [facility] BACKACHE NOS November-0 6-200 9 Mares Johanna. [address] [place], [place], [address]. tel:[phone] [facility], [address], [place], [place], [address] , [place] tel: [phone] [facility] OTHER LUNG DISEASE NECJOINT PAIN-MULT JTS [address] [facility]. [address] [place], [place], [address]. tel:[phone] [facility], [address], [place], [place], [address] , [place] tel:[phone] [facility] CHR AIRWAY OBSTRUCT NECCONTRACEPTIVE MANGMT NOS 6-200 7 [facility]. [address] [place], [place], [address]. tel:[phone] [facility], [address], [place], [place], [address] , tel:[phone] [facility] VACCINATION FOR TD-DT 6-200 7 Vishnu Spencer. [address] [place], [place], [address]. tel:[phone] [facility], [address], [place], [place], [address] , tel: [phone] [facility] SIMPLE CHR BRONCHITISFAM HX-DIABETES MELLITUSCERVICALGIA 3-200 7 Vishnu Lazcanoh. [address] [place], [place], [address]. tel:[phone] Family History Family Member Type Diagnosis Age At Onset Family h/o Problem (finding) DIABETES MELLITUS Immunizations Vaccine Date Status Comments 12951 - TD administered Source: Source Unspecified Payers Payer name Insurance type Covered green party ID Authoriza tion(s) No Information Social History Type Description Quantity Date Captured Comments Alcohol Use Details Unknown Caffeine Use Details Unknown Tobacco Use Status No Information Smoking Status No Information Sex Female Chief Complaint And Reason For Visit No Information Reason For Referral Reason For Referral No Information History Of Present Illness Encounter Date Complaint History Of Prese nt Illness No Information Functional Status Date Functional Assessmen t No Information Instructions Date Instruction Additional Infor mation No Information Assessments Type Assessment Date No Information Patient Care Teams Name Effective Dates (start - stop) Status Members No Information
--- OUTSIDE RECORDS SUMMARY | 2025-01-08 09:23 | XMS_ITS | Clinical Summary ---
Author Organization [facility] Address [address] [place] [address] Care Team Providers Care Lens Coating Technician Name Role Phone Carlos A Benjamin MD Primary Care Provider [phone] Source Comments [facility],non-owned Affiliates and Associated Physician Practices is amultiple site organization consisting of ambulatory clinics and hospital sitesin [place], [place], [place] and [place]. This disclosure is being madepursuant to the Care Everywhere program and may not contain all information available regarding this patient. Last updated 18.[facility] Allergies No known active allergies Medications * Be aware that medications may not be up to date on this document. Alwaysverify current medications with the patient. lisinopril (PRINIVIL; ZESTRIL) 20 MG tablet Take 20 mg by mouth DAILY. 05/14/2016 Active medroxyPROGESTER one (PROVERA) 2.5 MG tablet Take 2.5 mg by mouth DAILY. 05/14/2016 Active Cinnamon 500 MG Take 500 mg by mouth DAILY. 06/03/2016 Active calcium-vitamin D (OS-GERDA 500 + D) 500-200 MG-UNIT tablet Take 1 tablet by mouth DAILY. 06/03/2016 Active Vitamins/Mineral s TABS Take 1 tablet by mouth DAILY. 06/03/2016 Active alendronate (FOSAMAX) 70 MG tablet Take 70 mg by mouth DAILY. 05/14/2016 Active traMADol (ULTRAM) 50 MG tablet Take 50 mg by mouth. 05/05/2016 Active estradiol (ESTRACE) 0.5 MG tablet Take 0.5 mg by mouth DAILY. 05/14/2016 Active Active Problems Problem Noted Date Diagnosed Date Pain in thoracic spine 06/03/2016 Cervicalgia 06/03/2016 Abnormal weight loss 06/03/2016 Pain of right hand 06/03/2016 Pain of left hand 06/03/2016 Family History Medical History Relation Name Comments Cancer Father bladder; Status : Heart Disease Mother Status: Deceas ed Kidney Disease Mother Relation Name Status Comments Father Mother Social History Tobacco Use Types Packs/Day Years Used Date Smoking Tobacco: Every Day Cigarettes Smokeless Tobacco: Never Alcohol Use Standard Drinks/Week Comments Yes 2 (1 standard drink = 0.6 oz pur e alcohol) Comments No Sex and Gender Information Value Date Recorded Sex Assigned at Not on file Legal 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 Gender Identity Not on file Sexual Orientation Not on file Last Filed Vital Signs Vital Sign Reading Time Taken Comments Blood Pressure 117/56 12/21/2017 1:50 PM CDT Pulse 67 12/21/2017 1:50 PM CDT Temperature 36.7 C (98 F) 12/21/2017 1:50 PM CDT Respiratory Rate 18 12/21/2017 1:50 PM CDT Oxygen Saturation 97% 12/21/2017 1:50 PM CDT Inhaled Oxygen Concentration - - Weight 45.8 kg (101 lb) 12/21/2017 1:50 PM CDT Height 165.1 cm (5' 5) 12/21/2017 1:50 PM CDT Body Mass Index 16.81 12/21/2017 1:50 PM CDT Plan of Treatment Health Maintenance Due Date Last Done Comments BONE DENSITY TESTING 1960 COLOGUARD (AGES 45-75) - COL ON CA SCREENING 1960 COLON MONITORING 1960 COLONOSCOPY - COLON CA SCREENING 1960 CT COLONOGRAPHY - COLON CA SCREENING 1960 Colorectal Cancer Screening 1960 FIT - COLON CA SCREENING 1960 FLEX SIG - COLON CA SCREENING 1960 LIPID TESTING 1960 MAMMOGRAM 1960 HIV SCREENING 1974 HEPATITIS C SCREENING 07/27/1977 DTAP/TDAP/TD VACCINES (1 - Tdap) 1978 PNEUMOCOCCAL VACCINE 50+ (1 of 1 - PCV) 2009 ZOSTER VACCINE (1 of 2) 2009 COVID-19 VACCINE ( - 2023-2 5 season) 2024 DEPRESSION SCREENING 07/26/2024 INFLUENZA VACCINE (Season Ended) 2025 Respiratory Syncytial Virus (RSV) Vaccine Pt: or over 60 yrs (1 - 1-dose 75+ series) 2034 HEPATITIS B VACCINE Aged Out No longe r eligible based on patient's age to complete this topic HIB VACCINE Aged Out No longer eligi ble based on patient's age to complete this topic HPV VACCINE Aged Out No longer eligi ble based on patient's age to complete this topic MENINGOCOCCAL (Group B) VACC INE SHARED DECISION-MAKING Aged Out No longer eligibl e based on patient's age to complete this topic MENINGOCOCCAL GROUPS A/C/Y/W VACCINE Aged Out No longer eligible b ased on patient's age to complete this topic Insurance MEDICAID - [place] MEDICAID - OUT OF STATE Care Teams Lens Coating Technician Relationship Specialty Start Date End Date Carlos A Benjamin MD [address] [place], [place] [phone] (Work) PCP - General 02/18/16
--- OUTSIDE RECORDS SUMMARY | 2025-01-08 09:23 | XMS_ITS ---
Author Name LUCA KLINE M.D. Address [address] [place] [address] Phone [phone] Organization [facility] ([facility]) Care Team Providers Care Refrigerating Machine Operator Name Role Phone LCUA KLINE Unavailable [phone] Aaron Crump Unavailable [phone] Reason for Referral Not Available Allergies, adverse reactions, alerts No known allergies History of medication use Medication Class Instructions Start Date End Date Carvedilol 6.25 mg Tab 1 tablet orally 2 times per day with food 2024-11-28 No Data Available Daily Value Multivitamin Tab 1 tablet orally daily 11-27-05 No Data Available Cinnamon 500 mg Cap 1 cap daily 2024-11-28 No Data Available calcium + D 600/20 mg two tabs once a day 2024-11-28 No Data Available Aspirin EC 81 mg Tab delayed rel 1 tablet orally daily 2024-11-28 No Data Available True Vitamin B12 500 MCG Tab 1 tablet orally daily 11-27-05 No Data Available Vitamin C 1000 mg Tab Take one tablet daily 2024-11-28 No Data Available Problem List Problem Status Onset Date Resolved Date Synopsis Hypertension Inactive 2024-11-28 N/A Stable with meds Hyperlipidemia Inactive 2024-11-28 N/A Stable wit h med Asthma Inactive 2024-11-28 N/A Controlled wit h meds COPD (chronic obstructive pulmonary disease) Inactive 2024-11-28 N/A Controlled wi th meds Heart disease Inactive 2024-11-28 N/A With lifest yle adjustment and meds Underweight Active 2024-11-28 N/A Working on st opping smoking and gaining weight Encounters Encounters Type Facility Date of Service Diagnosis/Complaint Outpatient visit for evaluation and management of new patient, including medically appropriate examination and straightforward medical decision making, total time 15-29 minutes [facility] [place] 11/28/2024 Heart disease, unspecifiedEssential (primary) hypertensionHyperlipidemia, unspecifiedUnspecified asthma, uncomplicatedChronic obstructive pulmonary disease, unspecifiedUnderweightBody mass index (BMI) 19 or less, adult Vital Signs Date of Collection Vitals 2024-11-28 10:00:00 Height - 162.56 cmWe ight - 41.73 kgBody Mass Index (BMI) - 15.79 kg/m2 Social History Sex Female History of Procedures Procedures Service Procedure code Service date Servicing provider Phone# Outpatient visit for evaluation and management of new patient, including medically appropriate examination and straightforward medical decision making, total time 15-29 minutes [id number] 2024-11-28 No Data Available No Data Tashia ilable Functional Status Functional Category Effective Dates Totally independent 2024-11-28 Mental Status No Information Assessments Date of Service Assessments 2024-11-28 10:00:00 UnderweightHypertens ionHyperlipidemiaAsthmaCOPD (chronic obstructive pulmonary disease)Heart disease Plan of Care Date of Service Plans 2024-11-28 10:00:00 Working on stopping smoking and gaining weightStable with medsStable with medControlled with medsControlled with medsWith lifestyle adjustment and meds Goals Date Goal 2024-11-28 Recommend smoking ce ssation LISA 2024-11-28 Recommend Boost or E nsure for weight gain 2024-11-28 Recommend getting th e Shingles vaccine from the pharmacy 2024-11-28 Recommend heart heal thy lifestyle with low sodium, carb, fat, and reduced red meat diet. Eat more baked chicken, baked fish, soy protein, turkey, beans, oatmeal, nuts, and avocados. Health Concerns Date Concern 2024-11-28 [facility] is a service that involves a physician or advanced practice provider conducting comprehensive assessments in your patient s home or virtually to address crucial areas such as chronic conditions, quality gaps, social concerns, fall risk prevention, and various screenings. Please note that your patient will remain attributed to you even though they are participating in this service. If you have any questions, please reach out directly to our team at the phone number above.Gerri Loja is a very pleasant 64 y/o (1960) female, was seen today for a [facility] virtual video visit. Patient read rights and responsibilities and consented to treatment. The purpose of this summary is to update you on the patient's current health status and share any relevant findings from the examination. Ms. Loja looks well and shows no signs of acute distress. Does report a h/o of NSTEMI and is under the care of a Counter Stacker. Denies any chest pain, sob, headaches, dizziness, n/v, diarrhea, or constipation. Reports she is a current smoker of about 10 cigarettes a day and plans on smoking cessation on 12/07/24. Educated on the dangers of smoking and encouraged cessation. Also recommended drinking Boost or Ensure for adequate nutrition and weight gain. 2024-11-28 Recommendations: 2024-11-28 Underweight 2024-11-28 Hypertension 2024-11-28 Hyperlipidemia 2024-11-28 Asthma 2024-11-28 COPD (chronic obstru ctive pulmonary disease) 2024-11-28 Heart disease
--- OUTSIDE RECORDS SUMMARY | 2025-01-08 09:24 | XMS_ITS | Clinical Summary ---
Author Organization [facility] Address [address] [place] [address] Care Team Providers Care Brainer Name Role Phone Mana Darling Primary Care Provider [phone] Allergies No known active allergies Medications alendronate (FOSAMAX) 70 mg tablet 3 Active amLODIPine (NORVASC) 10 mg tablet Take 1 tablet (10 mg total) by mouth daily 2 Active aspirin 81 mg enteric coated tablet Take 1 tablet (81 mg total) by mouth daily 8 Active calcium carbonate-vitami n D3 1,500 mg (600mg elemental) -800 unit per tablet Take 1 tablet by mouth daily Active carvediloL (COREG) 12.5 mg tablet Take 1 tablet (12.5 mg total) by mouth every 12 (twelve) hours 2 Active cinnamon bark 500 mg capsule CINNAMON CAPSULE 8 Active cyanocobalamin (Vitamin B-12) 1,000 mcg tablet B-12 TABLET 8 Active cyclobenzaprine (FLEXERIL) 10 mg tablet Take 1 tablet (10 mg total) by mouth 3 (three) times a day 2 Active estradioL (ESTRACE) 0.5 mg tablet Take 1 tablet (0.5 mg total) by mouth daily 6 Active lisinopriL (PRINIVIL,ZESTRI L) 20 mg tablet 3 Active meloxicam (MOBIC) 15 mg tablet Take 1 tablet (15 mg total) by mouth daily 2 Active simvastatin (ZOCOR) 20 mg tablet Take 1 tablet (20 mg total) by mouth nightly 0 Active ascorbic acid (ascorbic acid with chioma hips) 500 mg tablet,chewable Acti ve albuterol HFA (PROVENTIL HFA,VENTOLIN HFA,PROAIR HFA) 90 mcg/actuation inhalerIndicatio ns:Chronic obstructive pulmonary disease, unspecified COPD type (HCC) Inhale 2 puffs every 6 (six) hours as needed for wheezing 1 each 11 4 Active Symbicort 160-4.5 mcg/actuation inhalerIndicatio ns:Chronic obstructive pulmonary disease, unspecified COPD type (HCC) Inhale 2 puffs 2 (two) times a day Rinse mouth with water after use. Do not swallow. 1 each 4 4 Active atorvastatin (LIPITOR) 80 mg tablet Take 1 tablet (80 mg total) by mouth daily 4 Active carvediloL (COREG) 6.25 mg tablet Take 1 tablet (6.25 mg total) by mouth 2 (two) times a day 4 Active Active Problems No known active problems Medical History Medical History Date Comments COPD (chronic obstructive pulmonary disease) (HC C) Hypertension Family History Medical History Relation Name Comments Cancer Father Heart disease Father Hypertension Father Diabetes Maternal Grandfather Heart disease Mother Hypertension Mother Relation Name Status Comments Father Maternal Grandfather Mother Social History Tobacco Use Types Packs/Day Years Used Date Smoking Tobacco: Former Cigarettes 1 40 1 08/26/1980 - 06/25/2021 Tobacco Cessation:Counseling Given: Not Answered Personal Safety Answer Date Recorded Getting School Help Needed Not on file 07/11 Comments Unknown Sex and Gender Information Value Date Recorded Sex Assigned at Not on file 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 Gender Identity Not on file Sexual Orientation Not on file Obstetrics History Last Filed Vital Signs Vital Sign Reading Time Taken Comments Blood Pressure 144/73 05/15/2024 9:28 AM CDT Pulse 64 05/15/2024 9:28 AM CDT Temperature 36.1 C (97 F) 05/15/2024 9:28 AM CDT Respiratory Rate 18 05/15/2024 9:28 AM CDT Oxygen Saturation 96% 05/15/2024 9:28 AM CDT Inhaled Oxygen Concentration - - Weight 41.5 kg (91 lb 9.6 oz) 05/15/2024 9:28 AM CDT Height 165.1 cm (5' 5) 05/15/2024 9:28 AM CDT Body Mass Index 15.24 05/15/2024 9:28 AM CDT Plan of Treatment Health Maintenance Due Date Last Done Comments Breast Cancer Screening-Mammogram 1960 Cervical Cancer Screening 1960 Colon Cancer Screening-Colonoscopy 1960 Depression Screening 1960 Fall Risk Assessment 1960 Hepatitis C Screening 1960 Osteoporosis Screening-Bone Density Scan 1960 DTaP/Tdap/Td Vaccine (1 - Tdap) 1970 Hepatitis B Screening 1977 Pneumococcal vaccine 65+ (1 of 2 - PCV) 1978 Zoster Vaccine (1 of 2) 2009 Covid-19 Vaccine (5 - 2023-2 5 season) 2024 05/27/2022, 11/11/2021, 10/25/2020, Additional history exists Well Visit 65+ 2024 Influenza Vaccine (Season Ended) 2025 05/13/2022, 04/28/2021, 06/04/2020, Additional history exists Lung Cancer Screening 04/18/2025 04/17/2024 , 04/14/2023, 12/10/2022, Additional history exists Procedures Procedure Name Priority Date/Time Associated Diagnosis Comments CT LUNG CANCER SCREENING Schedule Routine, Read Routine (OP Routine) 04/17/2024 1:56 PM CDT Cigarette nicotine dependence in remission from Last 3 Months or Most Recently Relevant to Health Maintenance Results * CT Lung Cancer Screening (04/17/2024 1:56 PM CDT) Anatomical Region Laterality Modality Chest N/A Computed Tomogra phy 04/19/2024 8:05 AM CDT Narrative 04/19/2024 8:23 AM CDT EXAM DESCRIPTION: CT LUNG CANCER SCREENING REASON FOR STUDY: Screening CT of the chest in a former smoker with a 45 pack year smoking history. Additional history: None. TECHNIQUE: Low dose CT scan of the chest was performed without intravenous contrast using helical scanning technique. The exam extends from the lung apices through the lung bases. Automatic exposure control was used as a dose optimization technique. NOTE: This study was performed for the specific purposes of lung cancer screening and is not an alternative to diagnostic chest CT. RADIATION DOSE: CT dose index volume (CTDIvol) = 0.75 mGy COMPARISON: CT chest 04/14/2023 , 11/03/2022 FINDINGS: SMOKING RELATED LUNG DISEASE: Moderate pulmonary emphysema is grossly similar. LUNG NODULES: Noncalcified 4 mm subpleural nodule in the posterior right lower lobe (image 168) is unchanged. Noncalcified subpleural 4 mm nodule in the posterior right lower lobe (133) is unchanged. Noncalcified 5 mm nodule in the right lower lobe (image 130 is unchanged. Moderate pulmonary emphysema. Partially calcified 5 mm nodule in the anterior right lower lobe (image 289) is unchanged. Subpleural noncalcified 5 mm nodule in the lateral right lower lobe (image 281) is unchanged. Subpleural 4 mm nodule in the lateral left upper lobe (image 54) is unchanged. Subpleural noncalcified 4 mm nodule in the left lower lobe (image 291) is unchanged. No new nodules. Small right posterolateral tracheal diverticulum. PLEURAE: No pneumothorax or pleural effusion. CORONARY ARTERY CALCIFICATION: Moderate MEDIASTINUM/KHADAR: No mediastinal or hilar lymphadenopathy within the limitations of a noncontrast exam. HEART: Heart size is top-normal. Small pericardial effusion. VASCULATURE: No thoracic aortic aneurysm. Fairly significant atherosclerotic calcification. AXILLAE: No lymphadenopathy. CHEST WALL: Mild pectus excavatum deformity. HARDWARE/LINES/TUBES: None. UPPER ABDOMEN: No significant abnormality. MUSCULOSKELETAL: Mild thoracic spondylosis. IMPRESSION: Stable bilateral pulmonary nodules measuring up to 5 mm. Moderate pulmonary emphysema. Lung-RADS category 2: Benign appearance or behavior. Recommendation: Low dose Screening CT of chest in 12 months. THIS IS AN ELECTRONICALLY VERIFIED FINAL REPORT 04/19/2024 8:23 AM - Electronically signed by Jovani Clancy M.D. T: Report ID: [id number] Reading Location: [place] [address] Procedure Note Jovani Clancy MD - 04/19/2024 EXAM DESCRIPTION: CT LUNG CANCER SCREENING REASON FOR STUDY: Screening CT of the chest in a former smoker with a45 pack year smoking history. Additional history: None. TECHNIQUE: Low dose CT scan of the chest was performed without intravenous contrast using helical scanning technique. The exam extends from the lung apices through the lung bases. Automatic exposure control was used as adose optimization technique. NOTE: This study was performed for the specific purposes of lung cancer screening and is not an alternative to diagnostic chest CT. RADIATION DOSE: CT dose index volume (CTDIvol) = 0.75 mGy COMPARISON: CT chest 04/14/2023 , 11/03/2022 FINDINGS: SMOKING RELATED LUNG DISEASE: Moderate pulmonary emphysema is grossly similar. LUNG NODULES: Noncalcified 4 mm subpleural nodule in the posterior right lower lobe (image 168) is unchanged. Noncalcified subpleural 4 mm nodulein the posterior right lower lobe (133) is unchanged. Noncalcified 5 mmnodule in the right lower lobe (image 130 is unchanged. Moderate pulmonary emphysema. Partially calcified 5 mm nodule in the anterior right lowerlobe (image 289) is unchanged. Subpleural noncalcified 5 mm nodule in thelateral right lower lobe (image 281) is unchanged. Subpleural 4 mm nodule in the lateral left upper lobe (image 54) is unchanged. Subpleural noncalcified4 mm nodule in the left lower lobe (image 291) is unchanged. No new nodules. Small right posterolateral tracheal diverticulum. PLEURAE: No pneumothorax or pleural effusion. CORONARY ARTERY CALCIFICATION: Moderate MEDIASTINUM/KHADAR: No mediastinal or hilar lymphadenopathy within the limitations of a noncontrast exam. HEART: Heart size is top-normal. Small pericardial effusion. VASCULATURE: No thoracic aortic aneurysm. Fairly significant atherosclerotic calcification. AXILLAE: No lymphadenopathy. CHEST WALL: Mild pectus excavatum deformity. HARDWARE/LINES/TUBES: None. UPPER ABDOMEN: No significant abnormality. MUSCULOSKELETAL: Mild thoracic spondylosis. IMPRESSION: Stable bilateral pulmonary nodules measuring up to 5 mm. Moderate pulmonary emphysema. Lung-RADS category 2: Benign appearance or behavior. Recommendation: Low dose Screening CT of chest in 12 months. THIS IS AN ELECTRONICALLY VERIFIED FINAL REPORT 04/19/2024 8:23 AM - Electronically signed by Jovani Clancy M.D. T: Report ID: [id number] Reading Location: [place] [address] Jannet Ardon MD IMG CT PROCEDURES Final Resul t from Last 3 Months or Most Recently Relevant to Health Maintenance Insurance [facility] Care Teams Brainer Relationship Specialty Start Date End Date Mana Darling PA [address] [place] [id number] PCP - General Physician Process Stripper 09/10/22
--- OUTSIDE RECORDS SUMMARY | 2025-01-08 09:24 | XMS_ITS | Referral Summary ---
Author Organization [facility] Address [address] [place] [address] Care Team Providers Care Benefits Consultant Name Role Phone Mana Darling Primary Care Provider [phone] Allergies No known active allergies Medications alendronate [...] Active Active Problems No known active problems Social History Tobacco Use Types Packs/Day Years Used Date Smoking Tobacco: Former Cigarettes 1 40 1 08/26/1980 - 06/25/2021 Tobacco Cessation:Counseling Given: Not Answered Personal Safety Answer Date Recorded Getting School Help Needed Not on file 07/11 Comments Unknown Sex and Gender Information Value Date Recorded Sex Assigned at Not on file 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 LB T: Report ID: [id number] Reading Location: [id number] Procedure Note Jovani Clancy MD - 04/19/2024 [...] - Electronically signed by Jovani Clancy M.D. LB T: Report ID: [id number] Reading Location: [place] [address] Jannet Ardon MD IMG CT PROCEDURES Final Resul t from Last 3 Months or Most Recently Relevant to Health Maintenance Insurance [facility] Care Teams Benefits Consultant Relationship Specialty Start Date End Date Mana Darling PA [address] [place] [id number] PCP - General Physician Forestry Technical Officer 09/10/22
--- OUTSIDE RECORDS SUMMARY | 2025-01-08 09:24 | XMS_ITS | CONTINUITY OF CARE DOCUMENT ---
Author Name tigre landeros Address Unknown Organization [facility] Address [address] [facility] [address] [place] [address] Phone [phone] Care Team Providers Care Candy Attendant Name Role Phone Walker Ford MD Unavailable ERLIN BERMEO MD Unavailable [phone] ERLIN BERMEO MD Unavailable [phone] PROBLEMS Condition Status Date Provider Notes Abnormal EKG active Walker Ford MD Family History of Hyperlipidemia: active ? Us alhaji Ford MD Family History of Hypertension: active ? Antonio Ford MD Family History of CVA or Stroke: active ? Rich Ford MD Family History of Hyperlipidemia: active ? Us alhaji Ford MD Family History of Hypertension: active ? Antonio Ford MD Arm pain, left active Walker Ford MD Chest pain active Walker Ford MD HTN essential active Walker Ford MD ENCOUNTERS Date Type Provider Location Encounter Diagnosis - In-person encounter Office Visit Walker Ford MD [facility] HTN essential - In-person encounter Office Visit Walker Ford MD [facility] Abnormal EKGFamily History of Hyperlipidemia:Fam tatianna History of Hypertension:Famil y History of CVA or Stroke:Family History of Hyperlipidemia:Fam tatianna History of Hypertension:Arm pain, leftChest pain VITAL SIGNS Date Observation Value Provider Body Mass Index (Ratio) 15.98 kg/m2 Antonio Ford MD blood pressure, cuff size regular Ke rri Gruenenfelder blood pressure, diastolic 60 mm[Hg] Ke rri Gruenenfelder blood pressure, systolic 102 mm[Hg] Apple ri Gruenenfelder oxygen saturation, oximetry 93 % Silvia Grdieudonneneluiselder respiratory rate E&M 18 /min Silvia G christopherenenfelder pulse rate 71 /min Silvia Grcarey lder weight E&M 99 [lb_av] Silvia Grdallase lder height E&M 66 [in_i] Silvia Jonas lder Body Mass Index (Ratio) 15.98 kg/m2 Antonio Ford MD blood pressure, cuff size regular Ke rri Gruenenfelder blood pressure, diastolic 70 mm[Hg] Ke rri Gruenenfelder blood pressure, systolic 142 mm[Hg] Apple Allenueneluiselder oxygen saturation, oximetry 98 % Silvia Hectorchanduluisbola respiratory rate E&M 18 /min Silvia G christopherenenfelder pulse rate 76 /min Silvia Alejandrodallase lder weight E&M 99 [lb_av] Silvia Mane lder height E&M 66 [in_i] Silvia Alejandrodallase lder ALLERGIES No Known Drug Allergies HISTORY OF MEDICATION USE Medication Status Instructions Dates Provider Indications Com ments MULTIVITAMINS ORAL CAPSULE active ONE TAB. DAILY Silvia Nathanael FOSAMAX 70 MG ORAL TABLET active one a week Silvia Nathanael CINNAMON CAPSULE active take one pill a day Silvia Carolanner B-12 TABLET active take one pill a day Silvia Vuonger CALCIUM 500 + D TABLET active take one pill a day Silvia Huffman LISINOPRIL 20 MG ORAL TABLET active ONE TAB. DAILY Silvia Nathanael SIMVASTATIN 10 MG ORAL TABLET active ONE TAB. AT BEDTIME Silvia Huffman ASPIRIN ADULT LOW DOSE 81 MG ORAL TABLET DELAYED RELEASE active One Tab By Mouth Daily Silvia Huffman SOCIAL HISTORY Date Observation Value Provider Underweight yes Walker Ford MD social history E&M S moking History: P atient is a former smoker. Walker Ford MD social history reviewed E&M revi ewed - no changes required Walker Ford MD alcohol use, average drinks per day social Silvia Huffman alcohol use yes Silvia albaer smoking, year quit 2017 Silvia kingsley number of years as a smoker 20 a Silvia Huffman smoking history, tot al pack/day 1/2 ppd Silvia Huffman cigarette use yes Silvia plaza smoking status Former smoker Silvia torres number of grandchildren Walker Ford MD U mary ellen Ford MD alcohol use, average drinks per day social Walker Ford MD alcohol use yes Walker Ford MD social history E&M S moking History: P billie is a former smoker. Walker Ford MD social history reviewed E&M revi ewed - no changes required Walker Ford MD Underweight yes Walker Ford MD number of years as a smoker 20 a Silvia Huffman smoking history, tot al pack/day 1/2 ppd Silvia Huffman smoking, year quit 2018 Silvia kingsley cigarette use yes Silvia Abreunf elder smoking status Former smoker Silvia Abreu nfelder FAMILY HISTORY Family Member Condition Father Family History of Hy pertension: Father Family History of Hy perlipidemia: Father Family History of CV A or Stroke: Mother Family History of Co ronary Artery Disease: Mother Family History of Hy pertension: Mother Family History of Hy perlipidemia: INSURANCE PROVIDERS Payer name Policy type / Coverage type Brandin red green party ID [place] MEDICAID (2) Medicaid [id number] ADVANCE DIRECTIVES Name Date DISCUSSED - NO DECISION MADE TREATMENT PLAN Date Name Performer Cardiology Follow up :BP in visit was 102/60 with a repeat of 93/60. She has no sx of low blood pressure. I would like if she could have her BP checked at your office. Walker Ford MD Cardiology Follow up :negative s tress test. Walker Ford MD Cardiology Follow up :negative stress test. No need for further workup for CAD. Walker Ford MD Cardiology New Patie nt :it is possible this is her angina equivalent and will order stress nuclear test and do an echo at the same time. Walker Ford MD Date Name STR - Nuclear Complete Echo HISTORY OF PROCEDURES Procedure Date Procedure Name Provider Procedure Notes S tatus Cardiolite, 2 units Walker Ford MD completed SPECT Images Analisa Ramon MD compl eted Stress EKG Analisa Ramon MD complet ed EKG Walker Ford MD completed
== END 2025-01-08 08:59 | disposition home or self-care (01) ==
PROVIDERS: PCP Physician Assistant
DX: Z12.31 Encounter for screening mammogram for malignant neoplasm of breast (principal)
CPT/HCPCS: 77063; 77067